=== PATIENT | female | born 1985 | race Caucasian/White ===

== ENCOUNTER 2016-12-06 09:29 | Emergency (ER) | payer MEDICAID ==
[~2016-12-06] VITALS: Ht 170.2 cm; Wt 113.5 kg
[2016-12-06 09:31] VITALS: BP 140/82; PULSE 118; RESP 20; TEMP 98.6; O2SAT 98
[2016-12-06] MEDS ORDERED: BACT800T5 PO (09:53)
[2016-12-06] MEDS ORDERED: NAPR500 PO (09:53)
[2016-12-06] MEDS ORDERED: CEPH-460 PO (09:53)
[2016-12-06 09:54] VITALS: PULSE 87; RESP 16; O2SAT 98
--- NOTE | 2016-12-06 09:54 | PD ---
HPI Chief Complaint: Home Coordinator Problem/Complaint Time Seen by Provider: 09:41 Travel History International Travel<30 days: No Contact w/Intl Traveler<30days: No Traveled to known affect area: No History of Present Illness HPI 31-year-old female here for evaluation of painful lump on her left labia. Patient first noticed a lump about 3 days ago. She states she has been squeezing the area and a small amount of purulent drainage was expressed. She admits to shaving. Her LMP was 1 week ago. No vaginal bleeding or discharge. She is sexually active with one partner whom she has been in a monogamous relationship with for the last 3 years. No fevers or chills. No abdominal pain. She has had a similar infection in the past and was told that it was from shaving. [facility] Past Medical History Medical History: Denies Significant Hx Diminished Hearing: No Immunizations Current: Yes Tetanus Vaccination: > 5 Years Influenza Vaccination: Yes ?: Not LMP: 11/29/16 : 1 Para: 1 Past Surgical History Oral Surgery: Yes (JAW SURG A CHILD) Social History Alcohol Use: Yes (ocassionally) Tobacco Use: No Substance Use: No Allergies-Medications (Allergen,Severity, Reaction): Coded Allergies: No Known Allergies (Verified , 12/06/16) Reported Meds & Prescriptions Reported Meds & Active Scripts Active Naprosyn (Naproxen) 500 Mg Tab 500 Mg PO BID Keflex (Cephalexin) 500 Mg Cap 500 Mg PO Q8H Bactrim DS (Sulfamethoxazole-Trimethoprim) 800-160 Mg Tab 1 Tab PO BID Review of Systems Except as stated in HPI: all other systems reviewed are Neg Physical Exam Narrative GENERAL: Well-developed, well-nourished, comfortable, no acute distress. ENT: Mucous membranes pink and moist. NECK: Trachea midline. No JVD. CARDIOVASCULAR: Regular rate and rhythm. RESPIRATORY: No accessory muscle use. Clear to auscultation. Breath sounds equal bilaterally. GASTROINTESTINAL: Abdomen soft, non-tender, nondistended. COLLAR SEWER: Exam performed in the presence of female nurse. Left labia with 2 cm x 2 similar area of induration with overlying lesion draining a small amount of purulent fluid, no fluctuance, mild overlying erythema and warmth. No red streaks. No crepitus. PSYCHIATRIC: Appropriate mood and affect; insight and judgment normal. Data Data Last Documented VS Vital Signs Date Time Temp Pulse Resp B/P Pulse Ox O2 Delivery O2 Flow Rate FiO2 12/06/16 09:54 87 16 98 Room Air 12/06/16 09:31 98.6 140/82 Orders Sulfamet-Trimeth Ds 800-160 Mg (Bactrim (12/06/16 10:00) Cephalexin (Keflex) (12/06/16 10:00) Naproxen (Naprosyn) (12/06/16 10:00) MDM Medical Decision Making Medical Screen Exam Complete: Yes Emergency Medical Condition: Yes Differential Diagnosis Labial abscess/cellulitis, Timothy's gangrene not likely, chancroid Narrative Course Vital signs reviewed. Initially the patient's heart rate was 118, however this was in triage, and improved to 87 when brought back to an exam room. Patient's physical exam is consistent with left labial abscess that has spontaneously drained with overlying cellulitis. Plan is to start the patient on antibiotics. She is requesting a prescription for Diflucan in case she develops a yeast infection. She will follow-up with her vacuum evaporation operator this week. She was informed on when to return to the emergency department. She verbalizes understanding and agreement with plan. Diagnosis Primary Impression: Cellulitis of labia Referrals: Quantitative Consultant 3 days Additional Instructions: Take antibiotics as prescribed. Sitz baths 2-3 times a day. Follow-up with your vacuum evaporation operator this week. Return to the emergency department for worsening symptoms or any other concerns as discussed. Scripts Fluconazole (Diflucan)150 Mg [id number] Mg PO ONCE #1 TAB Ref 0 Prov:Jaylan Crockett MD 12/06/16 Naproxen (Naprosyn)500 Mg [id number] Mg PO BID #20 TAB Ref 0 Prov:Jaylan Crockett MD 12/06/16 Cephalexin (Keflex)500 Mg [id number] Mg PO Q8H #30 CAP Ref 0 Prov:Jaylan Crockett MD 12/06/16 Sulfamethoxazole-Trimethoprim (Bactrim DS)800-160 Mg Tab1 Tab PO BID #20 TAB Ref 0 Prov:Jaylan Crockett MD 12/06/16 Disposition: 01 DISCHARGE HOME Condition: Stable Jaylan Crockett MD December 06, 2016 09:54
[2016-12-06 09:57] VITALS: BP 120/77; TEMP 97.8
[2016-12-06] MEDS ORDERED: SULFAMETHOXAZOLE-TRIMETHOPRIM DS 800-160 MG TAB PO ONE (10:00)
[2016-12-06] MEDS ORDERED: NAPROXEN 500 MG TAB PO ONE (10:00)
[2016-12-06] MEDS ORDERED: CEPHALEXIN MONOHYDRATE 500 MG CAP PO ONE (10:00)
[2016-12-06] MEDS ORDERED: DIFL150T PO (10:05)
== END 2016-12-06 09:58 | disposition home or self-care (01) ==
LOC: NEPD 09:29
DX: N76.2 Acute vulvitis (principal)
CPT/HCPCS: 99283

== ENCOUNTER 2017-07-31 07:54 | Emergency (ER) | payer MEDICAID ==
[~2017-07-31] VITALS: Ht 170.2 cm; Wt 118.0 kg
[2017-07-31 07:57] VITALS: BP 176/96; PULSE 114; RESP 16; TEMP 98.6; O2SAT 100
[2017-07-31 09:21] LABS: BACTERIA, URINE FEW /hpf; BILIRUBIN, URINE NEG (NEG); BLOOD, URINE LARGE (NEG); GLUCOSE,URINE NEG (NEG); KETONE, URINE NEG (NEG); MUCUS URINE FEW /lpf (OCC); NITRITE,URINE NEG (NEG); PH, URINE 5.5 (5.0-8.5); SQUAMOUS EPITHELIAL CELL URINE 37 /hpf (0-5); URINE COLOR YELLOW (YELLW/STRAW); URINE LEUKOCYTE ESTERASE SMALL (NEG)
[2017-07-31] MEDS ORDERED: MACR100C2 PO (09:41)
--- NOTE | 2017-07-31 09:41 | PD ---
HPI Chief Complaint: Related Problem Time Seen by Provider: 09:11 Travel History International Travel<30 days: No Contact w/Intl Traveler<30days: No Traveled to known affect area: No History of Present Illness HPI The patient is a 4 para 3, 31-year-old female last menstruation about 10 weeks ago who arrives complaining of vaginal bleeding since yesterday which started as clots and has turned into a continuous menstrual cycle type of bleed today. She has no cramping in the pelvis or abdomen. Or pain otherwise. No fever. No abnormal discharge or urinary complaints. She has yet to follow up with SIFTING OPERATOR. Severity moderate. Onset sudden. Timing constant. PFSH Past Medical History Diminished Hearing: No Immunizations Current: Yes ?: : 1 Para: 1 Past Surgical History Oral Surgery: Yes (JAW SURG A CHILD) Social History Alcohol Use: Yes (ocassionally) Tobacco Use: No Substance Use: No Allergies-Medications (Allergen,Severity, Reaction): Coded Allergies: No Known Allergies (Verified Adverse Reaction, Unknown, 07/31/17) Reported Meds & Prescriptions Reported Meds & Active Scripts Active Macrobid (Nitrofurantoin Monoh/Nitrofur Macro) 100 Mg Cap 100 Mg PO BID 5 Days Review of Systems Except as stated in HPI: all other systems reviewed are Neg General / Constitutional: No: Fever Physical Exam Narrative GENERAL: 31 yo F, well-nourished well-developed no acute distress SKIN: Warm and dry. HEAD: Atraumatic. Normocephalic. EYES: Pupils equal and round. No scleral icterus. No injection or drainage. ENT: No nasal bleeding or discharge. Mucous membranes pink and moist. NECK: Trachea midline. No JVD. CARDIOVASCULAR: Regular rate and rhythm. RESPIRATORY: No accessory muscle use. Clear to auscultation. Breath sounds equal bilaterally. GASTROINTESTINAL: Abdomen soft, non-tender, nondistended. Hepatic and splenic margins not palpable. MUSCULOSKELETAL: Extremities without clubbing, cyanosis, or edema. No obvious deformities. NEUROLOGICAL: Awake and alert. No obvious cranial nerve deficits. Motor grossly within normal limits. Five out of 5 muscle strength in the arms and legs. Normal speech. PSYCHIATRIC: Appropriate mood and affect; insight and judgment normal. Data Data Last Documented VS Vital Signs Date Time Temp Pulse Resp B/P (MAP) Pulse Ox O2 Delivery O2 Flow Rate FiO2 07/31/17 11:59 07/31/17 07:57 98.6 114 16 100 Room Air Vital signs reviewed Orders Orders Complete Blood Count With Diff (07/31/17 08:12) Beta Hcg (Quant/Titer) (07/31/17 08:12) Ed Urine Pregnancytest Poc (07/31/17 08:12) Urinalysis - C+S If Indicated (07/31/17 08:52) Urine Culture (07/31/17 09:00) Us Pelvis (Ques Pr/Ect)W Trans (07/31/17 ) Ed Discharge Order (07/31/17 11:45) Labs Laboratory Tests Test 07/31/17 09:00 07/31/17 09:40 Urine Color YELLOW Urine Turbidity HAZY Urine pH 5.5 Urine Specific [place] 1.027 Urine Protein 30 mg/dL Urine Glucose (UA) NEG mg/dL Urine Ketones NEG mg/dL Urine Occult Blood LARGE Urine Nitrite NEG Urine Bilirubin NEG Urine Urobilinogen LESS THAN 2.0 MG/DL Urine Leukocyte Esterase SMALL Urine RBC 15 /hpf Urine WBC 13 /hpf Urine Squamous Epithelial Cells 37 /hpf Urine Bacteria FEW /hpf Urine Mucus FEW /lpf Microscopic Urinalysis Comment CULTURE INDICATED White Blood Count 6.2 TH/MM3 Red Blood Count 4.55 MIL/MM3 Hemoglobin 13.6 GM/DL Hematocrit 40.1 % Mean Corpuscular Volume 88.0 FL Mean Corpuscular Hemoglobin 29.8 PG Mean Corpuscular Hemoglobin Concent 33.8 % Red Cell Distribution Width 13.5 % Platelet Count 164 TH/MM3 Mean Platelet Volume 8.5 FL Neutrophils (%) (Auto) 61.4 % Lymphocytes (%) (Auto) 27.8 % Monocytes (%) (Auto) 7.5 % Eosinophils (%) (Auto) 2.8 % Basophils (%) (Auto) 0.5 % Neutrophils # (Auto) 3.8 TH/MM3 Lymphocytes # (Auto) 1.7 TH/MM3 Monocytes # (Auto) 0.5 TH/MM3 Eosinophils # (Auto) 0.2 TH/MM3 Basophils # (Auto) 0.0 TH/MM3 CBC Comment DIFF FINAL Differential Comment Human Chorionic Gonadotropin, Quant [id number] MIU/ML MDM Medical Decision Making Medical Screen Exam Complete: Yes Emergency Medical Condition: Yes Medical Record Reviewed: Yes Differential Diagnosis IUP, UTI, ectopic , ov torsion, appendicitis, TOA, cervicitis, BV, Trichomoniasis, ov cyst, hernia, mittelschmerz, pain from menstruation Narrative Course CBC & BMP Diagram 07/31/17 09:40 Beta hCG 12,833 UA: UTI positive Last Impressions Pelvis Ultrasound 07/31/17 0000 Signed Impressions: Service Date/Time: Monday, July 31, 2017 09:41 - CONCLUSION: 1. Intrauterine gestational sac identified. Yolk sac and possible pole seen. heart activity not identified. pole may be too small for detection of heart activity. 2. 2.2 cm complex cyst in right ovary. Angelito Leggett MD Patient has threatened . Patient has follow-up with Paris Mejia and has been advised accordingly, 48 hour repeat beta. Return precautions discussed. Macrobid for UTI. Diagnosis Primary Impression: Threatened Additional Impression: UTI (urinary tract infection) Qualified Codes: N39.0 - Urinary tract infection, site not specified; R31.9 - Hematuria, unspecified Referrals: Deborah Mejia 2 days Med/Other Pt SpecificInfo: Prescription(s) given Scripts Nitrofurantoin Monohydrate Macrocrystals (Macrobid) 100 Mg Cap 100 MG PO BID for Infection for 5 Days, #10 CAP 0 Refills Prov: Everette Christian MD 07/31/17 Disposition: 01 DISCHARGE HOME Condition: Stable Everette Christian MD Jul 31, 2017 09:41
[2017-07-31 09:53] LABS: AUTOMATED NEUTROPHIL # 3.8 TH/MM3 (1.8-7.7); BASOPHIL % 0.5 % (0.0-2.0); EOSINOPHIL # 0.2 TH/MM3 (0-0.4); EOSINOPHIL % 2.8 % (0.0-4.0); HEMATOCRIT 40.1 % (35.0-46.0); HEMOGLOBIN 13.6 GM/DL (11.6-15.3); LYMPH % 27.8 % (9.0-44.0); LYMPHOCYTE # 1.7 TH/MM3 (1.0-4.8); MEAN CORPUSCULAR HEMOGLOBIN 29.8 PG (27.0-34.0); MEAN CORPUSCULAR HGB CONC 33.8 % (32.0-36.0); MEAN PLATELET VOLUME 8.5 FL (7.0-11.0); MONO % 7.5 % (0.0-8.0); MONOCYTE # 0.5 TH/MM3 (0-0.9); NEUT % 61.4 % (16.0-70.0); PLATELET COUNT 164 TH/MM3 (150-450); RED BLOOD COUNT 4.55 MIL/MM3 (4.00-5.30); RED CELL DISTRIBUTION WIDTH 13.5 % (11.6-17.2); WHITE BLOOD COUNT 6.2 TH/MM3 (4.0-11.0)
--- NOTE | 2017-07-31 11:30 | RADRPT ---
EXAM DATE/TIME: 07/31/2017 09:41 [facility] COMPARISON: No previous studies available for comparison. INDICATIONS : Bleeding. LAB(S): Beta-hC MEDICAL HISTORY : . SURGICAL HISTORY : Jaw surgery. ENCOUNTER: Initial ACUITY: 1 day PAIN SCORE: 0/10 LOCATION: Bilateral pelvis MEASUREMENTS: LEFT OVARY: 3.7 x 2.8 x 2.0 cm UTERUS: 11.4 x 7.0 x 5.8 cm ENDOMETRIAL STRIPE: 16 mm RIGHT OVARY: 5.0 x 2.6 x 2.6 cm FREE FLUID: No CROWN RUMP LENGTH: 0.3 = 5 WKS 6 DAYS FINDINGS: UTERUS: Intrauterine gestational sac is identified with approximate gestational age of 6 weeks 6 days by mean sac diameter. Yolk sac is identified. pole is seen with approximate gestational age by crown-r ump length of 5 weeks 6 days. No heart activity identified. RIGHT OVARY: 2.2 cm complex cyst in the right ovary. LEFT OVARY: Ovary contains no mass or significant cystic lesion. MISCELLANEOUS: No free fluid. CONCLUSION: 1. Intrauterine gestational sac identified. Yolk sac and possible pole seen. heart activi ty not identified. pole may be too small for detection of heart activity. 2. 2.2 cm complex cyst in right ovary. Angelito Leggett MD on July 31, 2017 at 11:23 Board Certified Radiologist. This report was verified electronically.
== END 2017-07-31 11:59 | disposition home or self-care (01) ==
LOC: NEPD 07:54
DX: O20.0 Threatened abortion (principal); O23.41 Unspecified infection of urinary tract in pregnancy, first trimester; Z3A.10 10 weeks gestation of pregnancy; O34.81 Maternal care for other abnormalities of pelvic organs, first trimester; N83.201 Unspecified ovarian cyst, right side
CPT/HCPCS: 76700; 76817; 81001; 84702; 84703; 85025; 87086; 99284

== ENCOUNTER 2017-08-03 09:11 | Emergency (ER) | payer MEDICAID ==
[~2017-08-03] VITALS: Ht 175.3 cm; Wt 119.0 kg
[2017-08-03 09:11] VITALS: BP 158/91; PULSE 92; RESP 18; TEMP 98.1; O2SAT 100
[~2017-08-03 09:11] MED LIST: MACR100C2 PO
--- NOTE | 2017-08-03 10:46 | PD ---
HPI Chief Complaint: Related Problem Time Seen by Provider: 09:21 Travel History International Travel<30 days: No Contact w/Intl Traveler<30days: No Traveled to known affect area: No History of Present Illness HPI 31 year-old woman who presents to the emergency department complaining of ongoing vaginal bleeding. She's , reportedly about 10 weeks, . She was seen [address] Christian. Had an ultrasound that showed early IUP, yolk sac and probable pole. HCG was 12,800. She was referred back for repeat hCG. She still having some bleeding. No cramping. No other complaints. History Past Medical History Medical History: Denies Significant Hx Tetanus Vaccination: < 5 Years Influenza Vaccination: No LMP: 05/2017 : 1 Para: 1 Social History Alcohol Use: Yes (ocassionally) Tobacco Use: Yes Allergies-Medications (Allergen,Severity, Reaction): Coded Allergies: No Known Allergies (Verified Adverse Reaction, Unknown, 08/03/17) Reported Meds & Prescriptions Reported Meds & Active Scripts Active Macrobid (Nitrofurantoin Monoh/Nitrofur Macro) 100 Mg Cap 100 Mg PO BID 5 Days Review of Systems Except as stated in HPI: all other systems reviewed are Neg Physical Exam Narrative GENERAL: Well-appearing 31 year-old woman, no acute distress. SKIN: Focused skin assessment warm/dry. CARDIOVASCULAR: Regular rate and rhythm. No murmur appreciated. RESPIRATORY: No accessory muscle use. Clear to auscultation. Breath sounds equal bilaterally. GASTROINTESTINAL: Abdomen soft, non-tender, nondistended. Hepatic and splenic margins not palpable. MUSCULOSKELETAL: No obvious deformities. No clubbing. No cyanosis. No edema. NEUROLOGICAL: Awake and alert. No obvious cranial nerve deficits. Motor grossly within normal limits. Normal speech. : Normal external female genitalia. Dark red vaginal bleeding. Cervix is closed. No palpable uterine enlargement or adnexal masses. Data Data Last Documented VS Vital Signs Date Time Temp Pulse Resp B/P (MAP) Pulse Ox O2 Delivery O2 Flow Rate FiO2 08/03/17 09:11 98.1 92 18 158/91 (113) 100 Orders Orders Beta Hcg (Quant/Titer) (08/03/17 09:21) Labs Laboratory Tests Test 08/03/17 08:10 Human Chorionic Gonadotropin, Quant [id number] MIU/ML MDM Medical Decision Making Medical Screen Exam Complete: Yes Emergency Medical Condition: Yes Interpretation(s) HCG 10,024, down from 12,833 Differential Diagnosis IUP, threatened AB, miscarriage, cervicitis, other Narrative Course 31 year-old woman, threatened AB, down trending hCG, likely miscarriage. Ultrasound confirmed IUP excluding ectopic. Recommend outpatient follow-up with OB. Diagnosis Primary Impression: Threatened Additional Instructions: Follow-up with the six color press operator as previously discussed. Return to the emergent department worsening pain, high fevers, heavy bleeding, or any other new or worsening symptoms. Med/Other Pt SpecificInfo: No Change to Meds Disposition: 01 DISCHARGE HOME Condition: Stable Torsten Sierra MD Aug 03, 2017 10:46
[2017-08-03] MEDS ORDERED: HYDR1OIN6 TOPICAL (10:54)
== END 2017-08-03 11:06 | disposition home or self-care (01) ==
LOC: NEPD 09:11
DX: O20.0 Threatened abortion (principal); Z3A.10 10 weeks gestation of pregnancy
CPT/HCPCS: 84702; 99283